=== PATIENT | male | born 1985 | race Caucasian/White ===

== ENCOUNTER 2019-11-02 23:34 | Emergency (ER) | payer BC ==
[2019-11-03 00:49] VITALS: BP 112/65; PULSE 116; TEMP 97.5; BMI 18.9
--- NOTE | 2019-11-03 01:12 | PDOC ---
Attending Attestation - Resident Resident Name: Betzaida Rojas - ED Attending Attestation I have performed the following: I have examined & evaluated the patient, The case was reviewed & discussed with the resident, I agree w/resident's findings & plan - HPI HPI: 11/03/19 02:18 see resident hpi - Physicial Exam PE: 11/03/19 02:18 see resident exam - Medical Decision Making 11/03/19 02:18 34-year-old male with left midline catheter in place stating it is due for removal told to come in for evaluation of possible DVT Ultrasound of the left upper extremity negative Patient offered further evaluation for baseline shortness of breath which he is refusing at this time stating his doctor is well aware of his condition, he is at baseline and does not want to wait for labs or further evaluation He is awake alert oriented x4 and able to make decisions. He has verbalized understanding of his medical condition. There is no criteria to hold patient against as well at this time.
--- NOTE | 2019-11-03 01:15 | PDOC ---
History of Present Illness - General Chief Complaint: Shortness of Breath Stated Complaint: SOB EVALUATION Time Seen by Provider: 11/03/19 01:01 History Source: Patient Exam Limitations: No Limitations - History of Present Illness Initial Comments: 11/03/19 01:43 34y M with PMH of bronchiectasis, OI presenting to ED with complaints of L arm swelling. Pt states he had a midline placed 6d ago in the L arm due to cultures in the sputum requiring him to use IV antibiotics. He states he noticed the swelling and called his doctor. His doctor stated that the cultures are sensitive to Levaquin and that he does not need the midline anymore. He was advised to go to an ER to have a doppler study to check for dvt and to have the midline removed. He denies fever, chills, chest pain, sob beyond the usual, cough, congestion, numbness/tingling in the arm, oozing from the midline site, tenderness. Past History - Past Medical History Allergies/Adverse Reactions: Allergies Allergy/AdvReac Type Severity Reaction Status Date / Time No Known Allergies Allergy Verified 11/03/19 00:42 COPD: No Other medical history: BRONCHIECTASIS - Immunization History Immunization Up to Date: Yes - Psycho Social/Smoking Cessation Hx Smoking History: Never smoked Information on smoking cessation initiated: No Hx Alcohol Use: No Drug/Substance Use Hx: No Review of Systems - Review of Systems Constitutional: No: Symptoms Reported HEENTM: No: Symptoms Reported Respiratory: No: Symptoms reported Cardiac (ROS): No: Symptoms Reported ABD/GI: No: Symptoms Reported Musculoskeletal: No: Symptoms Reported Integumentary: Yes: See HPI Neurological: No: Symptoms reported *Physical Exam - Vital Signs Last Vital Signs Temp Pulse Resp BP Pulse Ox 97.5 F L 116 H 22 H 112/65 95 11/02/19 23:45 11/02/19 23:45 11/02/19 23:45 11/02/19 23:45 11/02/19 23:45 - Physical Exam General Appearance: Yes: Nourished, Appropriately Dressed, Thin. No: Apparent Distress HEENT: positive: EOMI, WILDA, Normal ENT Inspection Neck: positive: Trachea midline, Supple. negative: Lymphadenopathy (R), Lymphadenopathy (L) Respiratory/Chest: positive: Lungs Clear, Normal Breath Sounds. negative: Crackles, Rales, Rhonchi, Stridor, Wheezing Cardiovascular: positive: Regular Rhythm, S1, S2, Tachycardia. negative: Edema , JVD, Murmur Vascular Pulses: Dorsalis-Pedis (R): 2+, Doralis-Pedis (L): 2+ Gastrointestinal/Abdominal: positive: Normal Bowel Sounds, Soft. negative: Tender Extremity: positive: Normal Capillary Refill, Swelling (L elbow and LUE swelling ) Integumentary: positive: Normal Color, Dry, Warm, Other (L elbow raised skin, dry and scaly. no drainage. ) Neurologic: positive: poultry [employer] II-XII NML intact, Fully Oriented, Alert, Normal Mood/ Affect, Normal Response, Motor Strength 02/06 Medical Decision Making - Medical Decision Making 11/03/19 03:25 34y M with PMH of bronchiectasis, OI presenting to eD with complaints of L arm swelling from midline catheter. pt advised to go to er for removal of catheter and doppler study to r/o dvt. Pt states he was getting iv abx due to sputum cultures growing organisms but pt states susceptibilities show reactivity to po levaquin. denies sob beyond baseline, fevers chills. pt states he has had lines in the past (PICC) which develpoed DVTs. line taken out due to swelling. doppler negative for dvt. pt states sob is at baseline, no new sob or other swelling. low suspicion for pe. overlying skin change likey reaction to adhesives on tape. pt is declining further testing and labs. wants to go home. is safe for dc home. has good f/u. given return precautions. Discharge - Discharge Information Problems reviewed: Yes Clinical Impression/Diagnosis: Left arm swelling Condition: Good Disposition: HOME - Admission No - Follow up/Referral Referrals: Carine Nevarez MD [Primary Care Provider] - - Patient Discharge Instructions Additional Instructions: The ultrasound was negative for DVT. Please call your doctor about these results and to start your antibiotics. Come back to the emergency room if you have worsening symptoms, swelling, rash, shortness of breath or fever. Thank you - Post Discharge Activity
== END 2019-11-03 02:13 | disposition home or self-care (01) ==
LOC: JER 23:34
DX: Z45.2 Encounter for adjustment and management of vascular access device (principal); T82.898A Other specified complication of vascular prosthetic devices, implants and grafts, initial encounter; M79.89 Other specified soft tissue disorders; Z86.718 Personal history of other venous thrombosis and embolism
CPT/HCPCS: 93971; 99282-25